=== PATIENT | male | born 1960 | race Caucasian/White ===

== ENCOUNTER → 2024-08-31 07:12 | Outpatient (REF) | payer OTHER, SELFPAY | LOC: HWRAD 07:12 | PROVIDERS: ATTENDING PHYSICIAN Family Medicine | DX: R76.8 Other specified abnormal immunological findings in serum (principal); R10.11 Right upper quadrant pain | CPT/HCPCS: 76700 ==

== ENCOUNTER → 2024-11-07 07:35 | Outpatient (REF) | payer OTHER, SELFPAY | LOC: PAVMRI 07:35 | PROVIDERS: ATTENDING PHYSICIAN Student in an Organized Health Care Education/Training Program; FAMILY PHYSICIAN Family Medicine | DX: R53.1 Weakness (principal); R74.8 Abnormal levels of other serum enzymes | CPT/HCPCS: 73218 ==

== ENCOUNTER → 2024-12-07 07:47 | Outpatient (REF) | payer OTHER, SELFPAY | LOC: EMG 07:47 | PROVIDERS: ATTENDING PHYSICIAN Student in an Organized Health Care Education/Training Program; FAMILY PHYSICIAN Family Medicine | DX: R53.1 Weakness (principal); R20.0 Anesthesia of skin | CPT/HCPCS: 95886; 95909 ==